=== PATIENT | female | born 1990 | race American Indian/Alaskan Native ===

== ENCOUNTER 2019-05-24 22:21 | Observation (INO) | payer MEDICAID ==
[2019-05-25 00:48] LABS: Basophils # (Auto) 0.1 K/mm3 (0.0-0.1); Basophils % (Auto) 0.5 % (0.0-1.8); Eosinophils # (Auto) 0.1 K/mm3 (0.0-0.4); Eosinophils % (Auto) 0.4 % (0.0-4.3); Lymphocytes # (Auto) 3.7 K/mm3 (1.2-5.4); Lymphocytes % (Auto) 28.4 % (13.4-35.0); Mean Corpuscular HGB Conc 33 % (30-34); Mean Corpuscular Volume 83 fl (79-97); Monocytes # (Auto) 0.7 K/mm3 (0.0-0.8); Monocytes % (Auto) 5.7 % (0.0-7.3); Platelet Count 352 K/mm3 (140-440); Red Blood Count 2.22 M/mm3 (3.65-5.03)
[2019-05-25] MEDS ORDERED: SODIUM CHLORIDE 0.9% 1000 ML 1,000 ML IV ONE (01:08)
[2019-05-25] MEDS ORDERED: ACETAMINOPHEN 500 MG TAB PO ONE (01:08)
[2019-05-25 01:26] LABS: Bacteria,Urine 2+ /HPF (Negative); Bilirubin,Urine NEG (Negative); Blood,Urine LG (Negative); Color,Urine Amber (Yellow); Mucus,Urine 3+ /HPF
[2019-05-25 01:32] LABS: Hematocrit 18.4 % (30.3-42.9)
[2019-05-25] MEDS ORDERED: cefTRIAXone/NS 1 GM/50 ML 1 GM/50 ML BAG IV ONE (02:30)
--- NOTE | 2019-05-25 03:30 | Ultrasound Report ---
OB ultrasound FINDINGS: The uterus measures 10.7 x 5 x 6.6 cm. There is no IUP seen. Endometrial complex is thicken ed at 2.2 cm but there is no increased vascularity so I would favor the appearance being due to clot. Both ovaries are normal with no cysts, masses or torsion. No free fluid seen. IMPRESSION: Relatively avascular endometrial collection suggests clot rather than retained products. Follow-up ultrasound may be of benefit. There is no IUP seen. Signer Name: Carlos A Lorenzo MD Signed: 05/25/2019 3:25 AM Workstation Name: [id number]
--- NOTE | 2019-05-25 05:05 | Emergency Department Report ---
ED Abdominal Pain HPI - General Chief Complaint: Abdominal Pain Stated Complaint: POST MISCARRIAGE PAIN Source: patient, EMS Mode of arrival: Ambulatory Limitations: No Limitations - History of Present Illness Initial Comments: Patient is a A1 28-year-old female with no past medical history who presents to the ED with acute onset persistent low abdominal pain for the last 5 days and vaginal bleeding for the last 4 days. Patient states that she was confirmed to be approximately 5 weeks gestation 3 days ago and was evaluated at another hospital and advised that she was having demise after presenting to the same with heavy vaginal bleeding and pelvic pain. Patient states that the vaginal bleeding has since resolved in the last 2 days but the pelvic pain is still persistent. Patient also complains of nausea and vomiting and lightheadedness with generalized weakness. Patient denies fever, chills, vaginal discharge, dysuria, urinary frequency and urgency, dizziness, chest pain or shortness of breath. MD Complaint: abdominal pain (pelvic pain) -: Sudden, days(s) (5) Location: suprapubic Radiation: none Migration to: no migration Severity scale (0 -10): 6 Quality: aching, sharp Consistency: constant Improves With: nothing Worsens With: vomiting Associated Symptoms: denies other symptoms, nausea, vomiting, hematuria, anorexia. denies: diarrhea, fever, constipation, dysuria, hematemesis, hematochezia, syncope - Related Data LMP (females 10-50): 2 months Allergies Allergy/AdvReac Type Severity Reaction Status Date / Time No Known Allergies Allergy Unverified 05/25/19 00:00 ED Review of Systems ROS: Stated complaint: POST MISCARRIAGE PAIN Other details as noted in HPI Constitutional: malaise, weakness. denies: chills, fever Eyes: denies: eye pain, eye discharge, vision change ENT: denies: ear pain, throat pain Respiratory: denies: cough, shortness of breath, wheezing Cardiovascular: denies: chest pain, palpitations Endocrine: no symptoms reported Gastrointestinal: abdominal pain, nausea, vomiting. denies: diarrhea Genitourinary: denies: urgency, dysuria, discharge Musculoskeletal: denies: back pain, joint swelling, arthralgia Skin: denies: rash, lesions Neurological: denies: headache, weakness, paresthesias Psychiatric: denies: anxiety, depression Hematological/Lymphatic: denies: easy bleeding, easy bruising ED Past Medical Hx - Past Medical History Previous Medical History?: Yes Hx Asthma: Yes - Surgical History Past Surgical History?: Yes Additional Surgical History: Hernia repair - Social History Smoking Status: Current Every Day Smoker Substance Use Type: None ED Physical Exam - General Limitations: No Limitations General appearance: alert, in no apparent distress - Head Head exam: Present: atraumatic, normocephalic, normal inspection - Eye Eye exam: Present: normal appearance, PERRL, EOMI Pupils: Present: normal accommodation - ENT ENT exam: Present: normal exam, normal orophraynx, mucous membranes moist, TM's normal bilaterally, normal external ear exam - Neck Neck exam: Present: normal inspection, full ROM - Respiratory Respiratory exam: Present: normal lung sounds bilaterally. Absent: respiratory distress, wheezes, rales, rhonchi, chest wall tenderness, accessory muscle use, prolonged expiratory - Cardiovascular Cardiovascular Exam: Present: regular rate, normal rhythm. Absent: systolic murmur, diastolic murmur, rubs, gallop - GI/Abdominal GI/Abdominal exam: Present: soft, normal bowel sounds - Extremities Exam Extremities exam: Present: normal inspection - Back Exam Back exam: Present: normal inspection - Neurological Exam Neurological exam: Present: alert, oriented X3 - Psychiatric Psychiatric exam: Present: normal affect, normal mood - Skin Skin exam: Present: warm, dry, intact, normal color. Absent: rash ED Course Vital Signs 05/24/19 05/25/19 23:30 01:46 Temperature 98.6 F Pulse Rate 89 Respiratory 18 18 Rate Blood Pressure 111/53 O2 Sat by Pulse 100 Oximetry ED Medical Decision Making - Lab Data Result diagrams: 05/25/19 00:17 - Radiology Data Radiology results: report reviewed, image reviewed Findings [facility] [address] [place] [address] Ultrasound Report Signed Patient: ROZINA CHAMBERS MR# : [id number] : 1990 Acct:[id number] Age/Sex: 28 / F ADM Date: 05/24/19 Loc: ED Attending Dr: Ordering Physician: ONEAL LINDSAY Date of Service: 05/25/19 Procedure(s): US OB transvaginal Accession Number(s): [id number] cc: ONEAL LINDSAY OB ultrasound FINDINGS: The uterus measures 10.7 x 5 x 6.6 cm. There is no IUP seen. Endometrial complex is thickened at 2.2 cm but there is no increased vascularity so I would favor the appearance being due to clot. Both ovaries are normal with no cysts, masses or torsion. No free fluid seen. IMPRESSION: Relatively avascular endometrial collection suggests clot rather than retained products. Follow-up ultrasound may be of benefit. There is no IUP seen. Signer Name: Carlos A Lorenzo MD Signed: 05/25/2019 3:25 AM Workstation Name: [employer] Transcribed By: ROSA Dictated By: Carlos A Lorenzo MD Electronically Authenticated By: Carlos A Lorenzo MD Signed Date/Time: 05/25/19324 DD/ 0 TD/TT: Findings [facility] [address] [place] [address] Ultrasound Report Signed Patient: ROZINA CHAMBERS MR# : [id number] : 1990 Acct:[id number] Age/Sex: 28 / F ADM Date: 05/24/19 Loc: ED Attending Dr: Ordering Physician: ONEAL LINDSAY Date of Service: 05/25/19 Procedure(s): US OB <= 14 weeks fetus Accession Number(s): [id number] cc: ONEAL LINDSAY OB ultrasound FINDINGS: The uterus measures 10.7 x 5 x 6.6 cm. There is no IUP seen. Endometrial complex is thickened at 2.2 cm but there is no increased vascularity so I would favor the appearance being due to clot. Both ovaries are normal with no cysts, masses or torsion. No free fluid seen. IMPRESSION: Relatively avascular endometrial collection suggests clot rather than retained products. Follow-up ultrasound may be of benefit. There is no IUP seen. Signer Name: Carlos A Lorenzo MD Signed: 05/25/2019 3:25 AM Workstation Name: [id number] Transcribed By: ROSA Dictated By: Carlos A Lorenzo MD Electronically Authenticated By: Carlos A Lorenzo MD Signed Date/Time: 05/25/19324 DD/ 0 TD/TT: - Medical Decision Making This is a 28-year-old A2 female who presented to the ED with pelvic pain with generalized weakness, nausea and vomiting and lightheadedness. Patient states that she had also been having heavy vaginal bleeding for the last 5 days and which resolved 2 days ago. Patient states that she was admitted at another hospital ED and advised that she was having a miscarriage at the time about 3 days ago. Patient states that at the time she was advised that she was 5 weeks gestation and that she was having a demise. Patient states that since that incident the vaginal bleeding that seems resolved by the pelvic pain is persistent. In the ED, patient is alert and oriented 3 and is not in any distress but appears to be in significant pain. Labs were drawn and patient was treated for pain. Lab results were reviewed and she was hemoglobin of 6.0 and hematocrit of 18.4 and acute leukocytosis of 13,100. Urinalysis shows significant urinary tract infection. Beta hCG Quant was 4777. Pelvic ultrasound and transvaginal ultrasound show relatively avascular endometrial collection suggests clot rather than retained products. Follow-up ultrasound may be of benefit. There is no IUP seen. These findings were discussed with the ED attending physician Dr. Ponce with the plan of care to admit the patient to the hospital for blood transfusion. I therefore discussed the patient's case with the hospitalist physician belt conveyor drier were advised that the patient does be initiated in the ED and the patient be transfused initially with 2 units of packed red blood cells. Patient was therefore admitted by Dr. Way - Differential Diagnosis Anemia due to blood loss; Complete Miscarriage; UTI; Dysmenorrhea Critical care attestation.: If time is entered above; I have spent that time in minutes in the direct care of this critically ill patient, excluding procedure time. ED Disposition Clinical Impression: Anemia due to blood loss, acute, Nausea and vomiting in adult, Acute urinary tract infection Abdominal pain Qualifiers: Abdominal location: lower abdomen, unspecified Qualified Code(s): R10.30 - Lower abdominal pain, unspecified Disposition: OP ADMIT IP TO THIS HOSP Is pt being admited?: Yes Does the pt Need Aspirin: No Condition: Stable Instructions: Abdominal Pain (ED) Referrals: PRIMARY CARE,MD [Primary Care Provider] - 3-5 Days Time of Disposition: 05:05 Print Language: ARABIC
[2019-05-25] MEDS ORDERED: SODIUM CHLORIDE 0.9% 500 ML 500 ML IV ONE ×2 (05:16→12:00)
[2019-05-25] MEDS ORDERED: ONDANSETRON 4 MG/2 ML INJ IV PRN (06:00)
[2019-05-25] MEDS ORDERED: SODIUM CHLORIDE 0.9% 1000 ML 1,000 ML IV SCH (06:00)
[2019-05-25] MEDS ORDERED: MAGNESIUM HYDROXIDE (MOM) ORAL LIQD UDC PO PRN (06:00)
--- NOTE | 2019-05-25 06:06 | History and Physical Report ---
History of Present Illness Date of examination: 05/25/19 Date of admission: 05/25/19 Chief complaint: Abdominal pain Generalized weakness History of present illness: 28 year old female presenting to the emergency room today complaining of abdominal pain. Abdominal pain has been ongoing for the past few days. She denies any fever, no chills. She has had some nausea and vomiting. Denies any diarrhea. She has been having generalized weakness, no headache or dizziness. Patient had significant history of miscarriage about a week ago and was seen at [facility] where she was evaluated and subsequently discharge home. However she has been seen some vaginal spots of blood with occasional clots since discharge from [facility] . Upon arrival in the emergency room, workup reveals a hemoglobin of 6, urinary tract infection, WBC of 13. Uterine ultrasound did not reveal any significant findings. Past History Past Medical History: No medical history Past Surgical History: Other (history of D&C in the past) Social history: smoking (smokes less than a pack of cigarettes daily), alcohol abuse (alcohol occasionally), full code, other (smokes marijuana occasionally) Medications and Allergies Allergies Allergy/AdvReac Type Severity Reaction Status Date / Time No Known Allergies Allergy Unverified 05/25/19 00:00 Review of Systems Constitutional: weakness Gastrointestinal: abdominal pain, nausea, vomiting Exam - Constitutional Vitals: Temp Pulse Resp BP Pulse Ox 98.6 F 89 18 111/53 100 05/24/19 23:30 05/24/19 23:30 05/25/19 01:46 05/24/19 23:30 05/24/19 23:30 General appearance: Present: no acute distress, well-nourished, other (moderately pale) - EENT Eyes: Present: PERRL, EOM intact ENT: hearing intact, clear oral mucosa, dentition normal - Neck Neck: Present: supple, normal ROM - Respiratory Respiratory: bilateral: CTA - Extremities Extremities: no ischemia, No edema Peripheral Pulses: within normal limits - Abdominal General gastrointestinal: Present: soft, tender (mild tenderness on the suprapubic region), non-distended, normal bowel sounds - Integumentary Integumentary: Present: clear, warm, dry, pale - Musculoskeletal Musculoskeletal: strength equal bilaterally - Psychiatric Psychiatric: appropriate mood/affect, intact judgment & insight, cooperative - Neurologic Neurologic: CNII-XII intact, moves all extremities Results - Labs CBC & Chem 7: 05/25/19 00:17 05/25/19 05:23 Labs: Abnormal lab results 05/25/19 05/25/19 05/25/19 Range/Units 00:17 00:17 01:01 WBC 13.1 H (4.5-11.0) K/mm3 RBC 2.22 L (3.65-5.03) M/mm3 Hgb 6.0 L (10.1-14.3) gm/dl Hct 18.4 L* (30.3-42.9) % MCH 27 L (28-32) pg RDW 17.0 H (13.2-15.2) % Seg Neutrophils # 8.5 H (1.8-7.7) K/mm3 HCG, Quant 4777 H (0-4) mIU/mL Urine WBC (Auto) 40.0 H (0.0-6.0) /HPF Crossmatch 05/25/19 Range/Units 05:16 WBC (4.5-11.0) K/mm3 RBC (3.65-5.03) M/mm3 Hgb (10.1-14.3) gm/dl Hct (30.3-42.9) % MCH (28-32) pg RDW (13.2-15.2) % Seg Neutrophils # (1.8-7.7) K/mm3 HCG, Quant (0-4) mIU/mL Urine WBC (Auto) (0.0-6.0) /HPF Crossmatch See Detail Assessment and Plan - Patient Problems (1) Anemia due to blood loss, acute Current Visit: Yes Status: Acute Plan to address problem: Probably secondary to blood loss. Patient with type and crossmatched for blood transfusion. We will monitor CBC. We will also place a consult to gynecology for evaluation of vaginal bleeding. Uterine ultrasound so far has been unremarkable. (2) Abdominal pain Current Visit: Yes Status: Acute Qualifiers: Abdominal location: lower abdomen, unspecified Qualified Code(s): R10.30 - Lower abdominal pain, unspecified Plan to address problem: Possibly secondary to recent miscarriage versus urinary tract infection. (3) Acute urinary tract infection Current Visit: Yes Status: Acute Plan to address problem: Patient placed on empiric IV antibiotics. Will await urine culture results. (4) DVT prophylaxis Current Visit: Yes Status: Acute Plan to address problem: She has been placed on sequential compression device.
[2019-05-25 06:08] LABS: Alanine Aminotransferase 7 units/L (7-56); Albumin 3.6 g/dL (3.9-5); BUN/Creatinine Ratio 13; Blood Urea Nitrogen 5 mg/dL (7-17); Calcium 8.1 mg/dL (8.4-10.2); Hemolysis Index 0
[2019-05-25] MEDS: MORPHINE 2 MG/1 ML INJ IV PRN ×2 (07:34→15:36)
--- NOTE | 2019-05-25 10:31 | Event Note ---
Date: 05/25/19 This is a follow-up from an admission earlier this morning. Patient seen and examined. We will continue the plan as outlined in H&P. Time spent = 26 minutes with greater than 50% time spent all coordination of care and counseling.
[2019-05-25] MEDS ORDERED: SODIUM CHLORIDE 0.9% 500 ML 500 ML IV SCH (12:00)
--- NOTE | 2019-05-25 12:29 | History and Physical Report ---
History of Present Illness Date of examination: 05/25/19 Date of admission: 05/25/19 08:50 Chief complaint: vaginal bleeding after miscarriage History of present illness: Patient is a A1 28-year-old female with no past medical history who presented to the ED with acute onset persistent low abdominal pain for the last 5 days and vaginal bleeding for the last 4 days. Patient states that she was confirmed to be approximately 5 weeks gestation 3 days ago and was evaluated at another hospital and advised that she was having demise after presenting to the same with heavy vaginal bleeding and pelvic pain. Patient states that the vaginal bleeding has since resolved in the last 2 days but the pelvic pain is still persistent. Patient also complains of nausea and vomiting and lightheadedness with generalized weakness. Patient denies fever, chills, vaginal discharge, dysuria, urinary frequency and urgency, dizziness, chest pain or shortness of breath. Past History Past Medical History: asthma Past Surgical History: D&C Family/Genetic History: none Social history: single. denies: smoking, alcohol abuse, prescription drug abuse Medications and Allergies Allergies Allergy/AdvReac Type Severity Reaction Status Date / Time No Known Allergies Allergy Unverified 05/25/19 00:00 Active Meds: Active Medications Acetaminophen (Tylenol) 650 mg PO Q4H PRN PRN Reason: Pain MILD(1-3)/Fever >100.5/[place] Sodium Chloride (Nacl 0.9% 1000 Ml) 1,000 mls @ 75 mls/hr IV DIRECT GAURAV Sodium Chloride (Nacl 0.9% 500 Ml) 500 mls @ 0 mls/hr IV ONCE GAURAV Stop: 05/25/19 23:00 Last Admin: 05/25/19 11:51 Dose: 41 mls/hr Documented by: Magnesium Hydroxide (Milk Of Magnesia) 30 ml PO Q4H PRN PRN Reason: Constipation Morphine Sulfate (Morphine) 2 mg IV Q4H PRN PRN Reason: Pain, Moderate (4-6) Last Admin: 05/25/19 07:34 Dose: 2 mg Documented by: Ondansetron HCl (Zofran) 4 mg IV Q8H PRN PRN Reason: Nausea And Vomiting Sodium Chloride (Sodium Chloride Flush Syringe 10 Ml) 10 ml IV BID GAURAV Last Admin: 05/25/19 11:51 Dose: 10 ml Documented by: Sodium Chloride (Sodium Chloride Flush Syringe 10 Ml) 10 ml IV PRN PRN PRN Reason: LINE FLUSH Review of Systems All systems: negative Gastrointestinal: abdominal pain - Vital Signs Vital signs: Vital Signs Temp Pulse Resp BP Pulse Ox 98.6 F 89 18 111/53 100 05/24/19 23:30 05/24/19 23:30 05/24/19 23:30 05/24/19 23:30 05/24/19 23:30 Temp Pulse Resp BP Pulse Ox 98.4 F 76 20 93/41 99 05/25/19 12:10 05/25/19 12:10 05/25/19 12:10 05/25/19 12:10 05/25/19 12:10 - Physical Exam Breasts: Positive: normal Cardiovascular: Regular rate, Normal S1 Lungs: Positive: Clear to auscultation, Normal air movement Abdomen: Positive: normal appearance, soft, normal bowel sounds. Negative: distention, tenderness, guarding Genitourinary (Female): Positive: normal external genitalia, normal perenium Uterus: Positive: normal size Anus/Rectum: Positive: normal perianal skin Extremities: Positive: normal Deep Tendon Reflex Grade: Normal +2 Results Result Diagrams: 05/25/19 00:17 05/25/19 05:23 Abnormal lab results 05/25/19 05/25/19 05/25/19 Range/Units 00:17 00:17 01:01 WBC 13.1 H (4.5-11.0) K/mm3 RBC 2.22 L (3.65-5.03) M/mm3 Hgb 6.0 L (10.1-14.3) gm/dl Hct 18.4 L* (30.3-42.9) % MCH 27 L (28-32) pg RDW 17.0 H (13.2-15.2) % Seg Neutrophils # 8.5 H (1.8-7.7) K/mm3 Potassium (3.6-5.0) mmol/L Carbon Dioxide (22-30) mmol/L BUN (7-17) mg/dL Creatinine (0.7-1.2) mg/dL Glucose (65-100) mg/dL Calcium (8.4-10.2) mg/dL Total Protein (6.3-8.2) g/dL Albumin (3.9-5) g/dL HCG, Quant 4777 H (0-4) mIU/mL Urine WBC (Auto) 40.0 H (0.0-6.0) /HPF Crossmatch 05/25/19 05/25/19 Range/Units 05:16 05:23 WBC (4.5-11.0) K/mm3 RBC (3.65-5.03) M/mm3 Hgb (10.1-14.3) gm/dl Hct (30.3-42.9) % MCH (28-32) pg RDW (13.2-15.2) % Seg Neutrophils # (1.8-7.7) K/mm3 Potassium 3.1 L (3.6-5.0) mmol/L Carbon Dioxide 21 L (22-30) mmol/L BUN 5 L (7-17) mg/dL Creatinine 0.4 L (0.7-1.2) mg/dL Glucose 101 H (65-100) mg/dL Calcium 8.1 L (8.4-10.2) mg/dL Total Protein 6.1 L (6.3-8.2) g/dL Albumin 3.6 L (3.9-5) g/dL HCG, Quant (0-4) mIU/mL Urine WBC (Auto) (0.0-6.0) /HPF Crossmatch See Detail All other labs normal. Assessment and Plan A/p HD#1 vaginal bleeding and abd pain severely anemic from acute bleed from miscarriage s/p miscarriage at [facility] UTI Blood type A+ agree with transfusion treat UTI with Abx consider methergine 0.2 mg for residual clot vs poc repeat quant tomorrow and US in few days no need for rhogam
[2019-05-25] MEDS: ACETAMINOPHEN 325 MG TAB PO PRN ×2 (12:32→23:44)
[2019-05-25] MEDS ORDERED: METHYLERGONOVINE 0.2 MG TABLET PO SCH (14:00)
[2019-05-25] MEDS: METHYLERGONOVINE 0.2 MG TABLET PO SCH (20:17)
[2019-05-26] MEDS: METHYLERGONOVINE 0.2 MG TABLET PO SCH ×3 (05:53→18:44)
[2019-05-26 09:29] LABS: Basophils % (Auto) 0.6 % (0.0-1.8); Eosinophils # (Auto) 0.1 K/mm3 (0.0-0.4); Eosinophils % (Auto) 1.7 % (0.0-4.3); Hematocrit 27.1 % (30.3-42.9); Hemoglobin 9.2 gm/dl (10.1-14.3); Lymphocytes # (Auto) 2.4 K/mm3 (1.2-5.4); Lymphocytes % (Auto) 31.4 % (13.4-35.0); Mean Corpuscular HGB Conc 34 % (30-34); Mean Corpuscular Volume 85 fl (79-97); Monocytes # (Auto) 0.6 K/mm3 (0.0-0.8); Monocytes % (Auto) 7.3 % (0.0-7.3); Platelet Count 321 K/mm3 (140-440); Red Blood Count 3.18 M/mm3 (3.65-5.03); Red Cell Distribution Width 16.5 % (13.2-15.2)
[2019-05-26 09:51] LABS: INR 1.06 (0.87-1.13)
[2019-05-26 09:52] LABS: Partial Thromboplastin Time 34.6 Sec. (24.2-36.6)
[2019-05-26 09:58] LABS: BUN/Creatinine Ratio 10; Blood Urea Nitrogen 4 mg/dL (7-17); Calcium 8.5 mg/dL (8.4-10.2); Hemolysis Index 5
[2019-05-26] MEDS: MORPHINE 2 MG/1 ML INJ IV PRN (10:51)
--- NOTE | 2019-05-26 15:17 | Discharge Summary ---
Providers - Providers Date of Admission: 05/25/19 08:50 Date of discharge: 05/26/19 Attending physician: MONIQUE ROMANO 05/25/19 05:45 Consult to Physician [CONS] Stat Comment: Consulting Provider: VIVIANE STARKEY Physician Instructions: Reason For Exam: Vaginal bleeding 05/26/19 15:04 Consult to Physician [CONS] Routine Reason For Exam: Vaginal bleeding Consulting Provider: VIVIANE STARKEY Physician Instructions: Comment: Primary care physician: [employer] [facility]ARY [employer]UM TANNER Hospitalization Condition: Stable Pertinent studies: Trans vaginal Ultrasound IMPRESSION: Relatively avascular endometrial collection suggests clot rather than retained products. Follow-up ultrasound may be of benefit. There is no IUP seen. Signer Name: Carlos A Lorenzo MD Signed: 05/25/2019 3:25 AM Workstation Name: [employer] [facility] course: (1) Anemia due to blood loss, acute Current Visit: Yes Status: Acute Plan to address problem: Secondary to blood loss. Patient with type and crossmatched for blood transfusion. Improved to 9.2/27 grams of Hb from 6 grams.vaginal bleeding has stopped HCG quant pending. HCG improving (2) Abdominal pain Current Visit: Yes Status: Acute Qualifiers: Abdominal location: lower abdomen, unspecified Qualified Code(s): R10.30 - Lower abdominal pain, unspecified Plan to address problem: Improved (3) Acute urinary tract infection Current Visit: Yes Status: Acute Plan to address problem: Discharge on Macrobid 100 po bid for 8 days Disposition: DC-01 TO HOME OR SELFCARE Core Measure Documentation - Palliative Care Palliative Care/ Comfort Measures: Not Applicable - Core Measures Any of the following diagnoses?: none Exam - Constitutional Vitals: Temp Pulse Resp BP Pulse Ox 98.1 F 66 16 95/38 99 05/26/19 04:54 05/26/19 04:54 05/26/19 04:54 05/26/19 04:54 05/26/19 04:54 General appearance: Present: no acute distress, well-nourished - EENT Eyes: Present: PERRL ENT: hearing intact, clear oral mucosa - Neck Neck: Present: supple, normal ROM - Respiratory Respiratory effort: normal Respiratory: bilateral: CTA - Cardiovascular Heart rate: 78 Rhythm: regular Heart Sounds: Present: S1 & S2. Absent: rub, click - Extremities Extremities: no ischemia, pulses intact, pulses symmetrical, No edema Peripheral Pulses: within normal limits - Abdominal General gastrointestinal: Present: soft, non-tender, non-distended, normal bowel sounds Female genitourinary: Present: normal - Integumentary Integumentary: Present: clear, warm, dry - Musculoskeletal Musculoskeletal: gait normal, strength equal bilaterally - Psychiatric Psychiatric: appropriate mood/affect, intact judgment & insight - Neurologic Neurologic: CNII-XII intact, moves all extremities - Allied Health Allied health notes reviewed: nursing, case management Plan Activity: no restrictions Diet: regular Follow up with: PRIMARY CARE, [Primary Care Provider] - 3-5 Days VIVIANE STARKEY MD [Staff Physician] - 7 Days
[2019-05-26 18:06] VITALS: BP 106/44
== END 2019-05-26 19:00 | disposition home or self-care (01) ==
LOC: ED 22:21 → 3A 05-25 08:50
PROVIDERS: ADMIT Internal Medicine Geriatric Medicine; ATTEND Internal Medicine
DX: D62 Acute posthemorrhagic anemia (principal); N39.0 Urinary tract infection, site not specified; R11.2 Nausea with vomiting, unspecified; R10.30 Lower abdominal pain, unspecified; R53.1 Weakness; J45.909 Unspecified asthma, uncomplicated; F17.210 Nicotine dependence, cigarettes, uncomplicated; Z98.890 Other specified postprocedural states
CPT/HCPCS: 36415; 76801; 76817; 80048; 80053; 81001; 84702; 85025; 85610; 85730; 86850; 86900; 86901; 86920; 87086; 96361; 96365; 96375; 96376; 99284; G0378; J0696; J2270; J7030; J7040; P9016; 96374